=== PATIENT | female | born 1975 | race Two or more races ===

== ENCOUNTER 2018-02-24 15:28 | Emergency (ER) | payer OTHER ==
[2018-02-24 15:44] VITALS: RESP 20
[2018-02-24] MEDS ORDERED: MORPHINE SULFATE 4 MG/ML SYRINGE IV STA ×3 (16:18→18:21)
[2018-02-24] MEDS ORDERED: ONDANSETRON 4 MG/2 ML VIAL IVP STA ×2 (16:18→18:20)
[2018-02-24] MEDS ORDERED: ceFAZolin 1,000 MG in DEXTROSE/WATER 1 50ML.BAG IVPB STA (16:24)
[2018-02-24] MEDS ORDERED: GENTAMICIN 110 MG in SODIUM CHLORIDE 0.9% 100 ML IVPB ONE (16:25)
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
[2018-02-24] MEDS ORDERED: DIPH,PERTUS(ACELL)TETVAC-LF 0.5 ML VIAL IM ONE (16:39)
--- NOTE | 2018-02-24 16:40 | XR ---
EXAMINATION TYPE: XR forearm RT DATE OF EXAM: 02/24/2018 COMPARISON: NONE HISTORY: Pain TECHNIQUE: 2 views FINDINGS: There is a fracture between middle and distal thirds of the radius. There is no displacemen t. There are multiple foreign bodies in the soft tissues of the distal forearm that measure up to 10 mm. There is soft tissue swelling. The ulna appears intact. IMPRESSION: Radius nondisplaced fracture. Multiple foreign bodies.
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
[2018-02-24 17:20] VITALS: BP 157/66; PULSE 69; TEMP 97.8
[2018-02-24] MEDS ORDERED: ceFAZolin 1,000 MG VIAL IM STA (18:20)
--- NOTE | 2018-02-25 04:17 | CDI ---
Documentation Clarification OP Dear JENNIFER Khalil/ Kj Huff MD Please do addendum to ED report for type of splint applied. Thank you, Melba Pool Dining Manager If you have any questions, please contact Bomb Squad Officer at [phone] [facility]
== END 2018-02-24 19:15 | disposition other institution (70) ==
LOC: EC 15:28
DX: S52.501B Unspecified fracture of the lower end of right radius, initial encounter for open fracture type I or II (principal); Z23 Encounter for immunization; Z79.899 Other long term (current) drug therapy; Z88.0 Allergy status to penicillin; Z88.5 Allergy status to narcotic agent; V47.6XXA Car passenger injured in collision with fixed or stationary object in traffic accident, initial encounter; Y92.89 Other specified places as the place of occurrence of the external cause
CPT/HCPCS: 99285; 29125; 96365; 96375 ×2; 96376 ×2; 96372; 90471; 73090; 72125; 70450; 90715; J2270; J2405; J0690; J1580